=== PATIENT | female | born 1955 | race Caucasian/White ===

== ENCOUNTER → 2017-08-22 | Outpatient (CLI) | payer MEDICARE ==
[~2017-08-22] MED LIST: LISINOPRIL 20MG20 MG PO; NEURONTIN600 MG PO; OXYBUTYNIN5 MG PO; PROZAC40 MG PO
--- NOTE | 2017-08-22 15:26 | RADIOLOGY REPORT PS360 ---
MRI-C-SPINE W/O, MRI-3D RENDERING/MYELOGRAM HISTORY: Left-sided neck pain with bilateral arm numbness DDD, OSTEOARTHRITIS OF CERVICAL SPINE ORDERING PHYSICIAN: KAMRON RAMSEY PATIENT AGE: 62 years COMPARISON: Radiograph of 08-09-17 TECHNIQUE: Standard multiplanar multiecho sequences are performed without contrast. 3-D MIP and myelographic images are also rendered and reviewed FINDINGS: There is normal alignment. The craniocervical junction has an unremarkable appearance. C2-3 minimal anterolisthesis of C2. C3-C4: Mild bulging disc with small left uncovertebral disc osteophyte complex causing [id number] left foraminal narrowing and left lateral recess narrowing. C4-C5: Degenerative disc disease with bulging disc along with endplate hypertrophic change with resultant canal stenosis of 9 mm and moderate bilateral foraminal and lateral recess narrowing. There is mild impingement upon the injury aspect of the cord from the bulging discs/disc osteophyte complex C5-C6: Degenerative disc disease with broad-based disc osteophyte complex moderate canal stenosis of 8 mm causing mild impingement an anterior compression upon the cord with severe bilateral lateral recess and foraminal narrowing.. C6-C7: Left paracentral and foraminal disc osteophyte complex with moderate left lateral recess and foraminal narrowing. C7-T1: Unremarkable. IMPRESSION: 1. Abnormal MRI of the cervical spine with multilevel cervical spondylosis with degenerative disc disease, disc osteophyte complexes, and facet and uncovertebral hypertrophy with canal stenosis and bilateral lateral recess narrowing. 2. Mild bulging disc C3-C4 with small left uncovertebral disc osteophyte complex causing [id number] left foraminal narrowing and left lateral recess narrowing. 3. Degenerative disc disease C4-C5 with bulging disc along with endplate hypertrophic change with resultant canal stenosis of 9 mm and moderate bilateral foraminal and lateral recess narrowing. There is mild impingement upon the injury aspect of the cord from the bulging discs/disc osteophyte complex 4. Degenerative disc disease C5-C6 with broad-based disc osteophyte complex moderate canal stenosis of 8 mm causing mild impingement an anterior compression upon the cord with severe bilateral lateral recess and foraminal narrowing.. 5. Left paracentral and foraminal disc osteophyte complex C6-C7 with moderate left lateral recess and foraminal narrowing.
--- NOTE | 2017-08-22 15:26 | RADIOLOGY REPORT PS360 ---
MRI-C-SPINE W/O, MRI-3D RENDERING/MYELOGRAM HISTORY: Left-sided neck pain with bilateral arm numbness DDD, OSTEOARTHRITIS OF CERVICAL SPINE ORDERING PHYSICIAN: KAMRON RAMSEY PATIENT AGE: 62 years COMPARISON: Radiograph of 08-09-17 TECHNIQUE: Standard multiplanar multiecho sequences are performed without contrast. 3-D MIP and myelographic images are also rendered and reviewed FINDINGS: There is normal alignment. The craniocervical junction has an unremarkable appearance. C2-3 minimal anterolisthesis of C2. C3-C4: Mild bulging disc with small left uncovertebral disc osteophyte complex causing [id number] left foraminal narrowing and left lateral recess narrowing. C4-C5: Degenerative disc disease with bulging disc along with endplate hypertrophic change with resultant canal stenosis of 9 mm and moderate bilateral foraminal and lateral recess narrowing. There is mild impingement upon the injury aspect of the cord from the bulging discs/disc osteophyte complex C5-C6: Degenerative disc disease with broad-based disc osteophyte complex moderate canal stenosis of 8 mm causing mild impingement an anterior compression upon the cord with severe bilateral lateral recess and foraminal narrowing.. C6-C7: Left paracentral and foraminal disc osteophyte complex with moderate left lateral recess and foraminal narrowing. C7-T1: Unremarkable. IMPRESSION: 1. Abnormal MRI of the cervical spine with multilevel cervical spondylosis with degenerative disc disease, disc osteophyte complexes, and facet and uncovertebral hypertrophy with canal stenosis and bilateral lateral recess narrowing. 2. Mild bulging disc C3-C4 with small left uncovertebral disc osteophyte complex causing [id number] left foraminal narrowing and left lateral recess narrowing. 3. Degenerative disc disease C4-C5 with bulging disc along with endplate hypertrophic change with resultant canal stenosis of 9 mm and moderate bilateral foraminal and lateral recess narrowing. There is mild impingement upon the injury aspect of the cord from the bulging discs/disc osteophyte complex 4. Degenerative disc disease C5-C6 with broad-based disc osteophyte complex moderate canal stenosis of 8 mm causing mild impingement an anterior compression upon the cord with severe bilateral lateral recess and foraminal narrowing.. 5. Left paracentral and foraminal disc osteophyte complex C6-C7 with moderate left lateral recess and foraminal narrowing.
--- NOTE | 2017-08-22 15:26 | RADIOLOGY REPORT PS360 ---
MRI-C-SPINE W/O, MRI-3D RENDERING/MYELOGRAM HISTORY: Left-sided neck pain with bilateral arm numbness DDD, OSTEOARTHRITIS OF CERVICAL SPINE ORDERING PHYSICIAN: KAMRON RAMSEY PATIENT AGE: 62 years COMPARISON: Radiograph of 08-09-17 TECHNIQUE: Standard multiplanar multiecho sequences are performed without contrast. 3-D MIP and myelographic images are also rendered and reviewed FINDINGS: There is normal alignment. The craniocervical junction has an unremarkable appearance. C2-3 minimal anterolisthesis of C2. C3-C4: Mild bulging disc with small left uncovertebral disc osteophyte complex causing [id number] left foraminal narrowing and left lateral recess narrowing. C4-C5: Degenerative disc disease with bulging disc along with endplate hypertrophic change with resultant canal stenosis of 9 mm and moderate bilateral foraminal and lateral recess narrowing. There is mild impingement upon the injury aspect of the cord from the bulging discs/disc osteophyte complex C5-C6: Degenerative disc disease with broad-based disc osteophyte complex moderate canal stenosis of 8 mm causing mild impingement an anterior compression upon the cord with severe bilateral lateral recess and foraminal narrowing.. C6-C7: Left paracentral and foraminal disc osteophyte complex with moderate left lateral recess and foraminal narrowing. C7-T1: Unremarkable. IMPRESSION: 1. Abnormal MRI of the cervical spine with multilevel cervical spondylosis with degenerative disc disease, disc osteophyte complexes, and facet and uncovertebral hypertrophy with canal stenosis and bilateral lateral recess narrowing. 2. Mild bulging disc C3-C4 with small left uncovertebral disc osteophyte complex causing [id number] left foraminal narrowing and left lateral recess narrowing. 3. Degenerative disc disease C4-C5 with bulging disc along with endplate hypertrophic change with resultant canal stenosis of 9 mm and moderate bilateral foraminal and lateral recess narrowing. There is mild impingement upon the injury aspect of the cord from the bulging discs/disc osteophyte complex 4. Degenerative disc disease C5-C6 with broad-based disc osteophyte complex moderate canal stenosis of 8 mm causing mild impingement an anterior compression upon the cord with severe bilateral lateral recess and foraminal narrowing.. 5. Left paracentral and foraminal disc osteophyte complex C6-C7 with moderate left lateral recess and foraminal narrowing.
--- NOTE | 2017-08-22 15:26 | RADIOLOGY REPORT PS360 ---
MRI-C-SPINE W/O, MRI-3D RENDERING/MYELOGRAM HISTORY: Left-sided neck pain with bilateral arm numbness DDD, OSTEOARTHRITIS OF CERVICAL SPINE ORDERING PHYSICIAN: KAMRON RAMESY PATIENT AGE: 62 years COMPARISON: Radiograph of 08-09-17 TECHNIQUE: Standard multiplanar multiecho sequences are performed without contrast. 3-D MIP and myelographic images are also rendered and reviewed FINDINGS: There is normal alignment. The craniocervical junction has an unremarkable appearance. C2-3 minimal anterolisthesis of C2. C3-C4: Mild bulging disc with small left uncovertebral disc osteophyte complex causing [id number] left foraminal narrowing and left lateral recess narrowing. C4-C5: Degenerative disc disease with bulging disc along with endplate hypertrophic change with resultant canal stenosis of 9 mm and moderate bilateral foraminal and lateral recess narrowing. There is mild impingement upon the injury aspect of the cord from the bulging discs/disc osteophyte complex C5-C6: Degenerative disc disease with broad-based disc osteophyte complex moderate canal stenosis of 8 mm causing mild impingement an anterior compression upon the cord with severe bilateral lateral recess and foraminal narrowing.. C6-C7: Left paracentral and foraminal disc osteophyte complex with moderate left lateral recess and foraminal narrowing. C7-T1: Unremarkable. IMPRESSION: 1. Abnormal MRI of the cervical spine with multilevel cervical spondylosis with degenerative disc disease, disc osteophyte complexes, and facet and uncovertebral hypertrophy with canal stenosis and bilateral lateral recess narrowing. 2. Mild bulging disc C3-C4 with small left uncovertebral disc osteophyte complex causing [id number] left foraminal narrowing and left lateral recess narrowing. 3. Degenerative disc disease C4-C5 with bulging disc along with endplate hypertrophic change with resultant canal stenosis of 9 mm and moderate bilateral foraminal and lateral recess narrowing. There is mild impingement upon the injury aspect of the cord from the bulging discs/disc osteophyte complex 4. Degenerative disc disease C5-C6 with broad-based disc osteophyte complex moderate canal stenosis of 8 mm causing mild impingement an anterior compression upon the cord with severe bilateral lateral recess and foraminal narrowing.. 5. Left paracentral and foraminal disc osteophyte complex C6-C7 with moderate left lateral recess and foraminal narrowing.
== END ==
LOC: RAD 13:45
DX: M50.30 Other cervical disc degeneration, unspecified cervical region (principal); M47.812 Spondylosis without myelopathy or radiculopathy, cervical region; M47.892 Other spondylosis, cervical region; M99.81 Other biomechanical lesions of cervical region